=== PATIENT | female | born 1990 | race American Indian/Alaskan Native ===

== ENCOUNTER 2021-05-11 05:09 | Emergency (ER) | payer SELFPAY ==
[2021-05-11 05:43] VITALS: BP 141/101
--- NOTE | 2021-05-11 08:02 | Emergency Department Report ---
ED Back Pain/Injury HPI - General Chief Complaint: Back Pain/Injury Stated Complaint: BACK PAIN Time Seen by Provider: 05/11/21 07:36 Source: EMS Limitations: No Limitations - History of Present Illness Initial Comments: 30-year-old -[place] male presents to the emergency room stating that he has excruciating back pain. Patient states that he was working at [employer] where he works when he bent down to move a box has set it down and then bent down to straighten it out and 20 felt his back go out. Patient denies any urinary incontinent. States that the pain is worse when he just sits. He denies any other injury patient denies any trauma to his back. MD Complaint: back pain, back injury -: This morning Similar Symptoms Previously: No Place: work Radiation: none Severity: severe Severity scale (0 -10): 8 Quality: burning, sharp Consistency: constant Improves With: none Worsens With: none Context: while lifting Associated Symptoms: denies other symptoms - Related Data Allergies Allergy/AdvReac Type Severity Reaction Status Date / Time No Known Allergies Allergy Unverified 05/11/21 07:52 ED Review of Systems ROS: Stated complaint: BACK PAIN Other details as noted in HPI Comment: All other systems reviewed and negative ED Physical Exam - General Limitations: No Limitations General appearance: alert, in no apparent distress, other (Appears uncomfortable) - Head Head exam: Present: atraumatic, normocephalic - Eye Eye exam: Present: normal appearance - ENT ENT exam: Present: mucous membranes moist, normal external ear exam - Neck Neck exam: Present: normal inspection, full ROM - Respiratory Respiratory exam: Absent: respiratory distress, accessory muscle use - Cardiovascular Cardiovascular Exam: Present: regular rate - Back Exam Back exam: Present: full ROM - Neurological Exam Neurological exam: Present: alert, oriented X3, normal gait - Psychiatric Psychiatric exam: Present: normal affect, normal mood - Skin Skin exam: Present: warm, dry, intact, normal color. Absent: rash ED Course Vital Signs 05/11/21 05:42 Temperature 98.8 F Pulse Rate 64 Respiratory 18 Rate Blood Pressure 141/101 [Left] O2 Sat by Pulse 98 Oximetry ED Medical Decision Making - Medical Decision Making 30-year-old -[place] male presents to the emergency room stating that he has excruciating back pain. Patient states that he was working at [employer] where he works when he bent down to move a box has set it down and then bent down to straighten it out and 20 felt his back go out. Patient denies any urinary inco ntinent. States that the pain is worse when he just sits. He denies any other injury patient denies any trauma to his back. Patient was offered all Toradol injection steroid injection and to be sent home on Robaxin. Patient refused and states that he feels he needs an x-ray and a CT scan. Discussed with patient that his injuries does not warrant those images. Patient decided to elope. Critical care attestation.: If time is entered above; I have spent that time in minutes in the direct care of this critically ill patient, excluding procedure time. ED Disposition Clinical Impression: Back strain Disposition: 20 Is pt being admited?: No Does the pt Need Aspirin: No Condition: Stable Time of Disposition: 08:04
== END 2021-05-12 20:06 | disposition home or self-care (01) ==
LOC: ED 05:09
DX: S39.012A Strain of muscle, fascia and tendon of lower back, initial encounter (principal); X58.XXXA Exposure to other specified factors, initial encounter; Y93.89 Activity, other specified; Y92.89 Other specified places as the place of occurrence of the external cause; Y99.8 Other external cause status
CPT/HCPCS: 99282; 99283